=== PATIENT | male | born 1980 | race Caucasian/White ===

== ENCOUNTER 2017-05-23 08:26 | Emergency (ER) | payer OTHER ==
[2017-05-23] MEDS ORDERED: ALBUTEROL SULFATE/IPRATROPIUM 3 ML NEBU IH ONE ×2 (09:37→09:50)
[2017-05-23 09:38] LABS: Hematocrit 47.3 % (42.0-52.0); Hemoglobin 16.9 gm/dL (13.5-18.0); Mean Cell Volume 86.5 fl (78-100); Mean Corpuscular Hemoglobin 30.9 pg (27-31); Mean Corpuscular Hgb Conc 35.7 g/dl (32-36); Mean Platelet Volume 10.1 fl (6.0-9.5); Neutrophil % 59.3 % (42-75.0); Platelet Count 261 K/mm3 (150-450); Red Blood Count 5.47 M/mm3 (4.7-6.0); Red Cell Distribution Width 11.7 % (11.5-14.0); White Blood Count 6.8 K/mm3 (4.0-10.5)
[2017-05-23 09:57] LABS: ALT 56 U/L (19-67); AST 25 U/L (0-48); Albumin * 4.2 gm/dl (3.4-5.0); Alkaline Phosphatase * 85 U/L (50-170); Anion Gap 10.9 mmol/L (6.8-13.8); BUN/Creatinine Ratio 14.3 (9.0-21.6); Bilirubin, Total 0.4 mg/dL (0.0-1.1); Blood Urea Nitrogen 18 mg/dL (6-23); Ca. Corrected For Albumin 8.3 mg/dL (8.4-10.2); Calcium * 8.8 mg/dL (7.9-10.9); Carbon Dioxide 29.4 mmol/L (24-32.6); Chloride 103 mmol/L (97-106); Glucose * 100 mg/dL (70-110); Lipase 103 U/L (73-393); Potassium 4.3 mmol/L (3.4-4.6); Sodium 139 mmol/L (132-142); Total Protein 7.5 gm/dL (6.2-8.2)
[2017-05-23 09:59] LABS: Troponin I Less than 0.017 ng/ml (0.00-0.10)
[2017-05-23 10:18] VITALS: BP 139/84
--- NOTE | 2017-05-23 10:42 | ERNOTE ---
Time Seen by Provider: 05/23/17 09:17 Stated Complaint: PAIN WHEN BREATHING Source: patient Exam Limitations: no limitations Immunizations: IMMUNIZATION HX Immunizations Up to Date Yes History of Influenza Vaccine No Allergies/Adverse Reactions: Allergies acetaminophen [From Tylenol-Codeine #3] Allergy (Verified 05/23/17 08:47) codeine phosphate [From Tylenol-Codeine #3] Allergy (Verified 05/23/17 08:47) latex Allergy (Verified 05/23/17 08:47) levofloxacin [From Levaquin] Allergy (Verified 05/23/17 08:47) metoclopramide HCl [From Reglan] Allergy (Verified 05/23/17 08:47) morphine Allergy (Verified 05/23/17 08:47) oxycodone HCl [From Percocet] Allergy (Verified 05/23/17 08:47) promethazine HCl [From Phenergan] Allergy (Verified 05/23/17 08:47) sulfamethoxazole [From Bactrim] Allergy (Verified 05/23/17 08:47) trimethoprim [From Bactrim] Allergy (Verified 05/23/17 08:47) Home Medications: HOME MEDICATIONS Albuterol Sulfate [Proair Hfa] 2 puff IH QID PRN 04/18/16 [Last Taken Unknown] Budesonide/Formoterol Fumarate [Symbicort 160-4.5 Mcg Inhaler] 2 puff IH BID [Last Taken Unknown] Benzonatate [Tessalon Perle] 100 mg PO TID PRN #10 capsule 05/23/17 [Last Taken Unknown] - [facility]: patient presents with cough and right sided CP for several weeks. He had a pneumonia diagnosed just before and was treated with ABx. This was in [facility]. He has been having right sided CP ever since then, constant but also with deep breathing. It has gradually been improving for the last couple of weeks but because it was still present he came in to be evaluated. No SOB. Still with cough. No fever. Pain right anterior chest and some in RUQ. No vomiting. Pain is worse with touching his chest by his report. Overall he had been improving with these Sx but because it wan't entirely gone he wanted to be checked. no acute or new Sx today. No hemptysis , still with some sputum production. Timing: getting worse Severity: moderate Modifying Factors - Improves: Reports: nothing Modifying Factors - Worsens: Reports: other - touching chest Associated Symptoms: Reports: cough. Denies: shortness of breath, facial pain, sore throat Prior Treatment: Reports: recently seen, treated by physician Review of Systems - Review of Systems Constitutional: Absent: fever ENT: Absent: sore throat Respiratory: Present: See HPI Cardiology: Present: See HPI Gastrointestinal/Abdominal: Present: See HPI. Absent: nausea, vomiting Genitourinary: Present: no symptoms reported Musculoskeletal: Present: See HPI, other - no DVT Sx Skin: Absent: rash Neurological: Absent: weakness - Patient's Past Medical History Patient History - Medical: No pertinent hx Patient History - Cardiac/Respiratory: No pertinent hx Patient History - Cancer: No Hx of Cancer Patient History - Surgical Procedures: Vasectomy Patient History - Other: None - Social History Living Situations: home Psych History: No pertinent hx Smoking Status: Never smoker Alcohol Use: occasionally Drug Use: none - Immunizations Immunizations Up to Date: Yes History of Influenza Vaccine: No Physical Exam - Physical Exam General Appearance: Present: alert, no apparent distress, other - pleasant, sitting on the bed, speaking in full sentences, non-toxic, no distress. Head Exam: Present: normal inspection, no evidence of injury Eye Exam: Normal inspection: bilateral, PERRL: bilateral Ears, Nose, Throat: Present: normal ENT inspection. Absent: dry mucous membranes Neck: Present: normal inspection Respiratory: Present: no respiratory distress, normal breath sounds, no accessory muscle use, lungs clear, chest tenderness, other - Right CC anterior chest tendenress. Absent: accessory muscle use, crackles, rales, rhonchi, stridor, wheezing, pleural rub Cardiovascular/Chest: Present: regular rate, rhythm, normal peripheral pulses Gastrointestinal/Abdominal: Present: normal bowel sounds, nontender, nondistended, soft, no organomegaly Back Exam: Present: normal range of motion Extremity Exam: Present: normal inspection, no edema Neurological Exam: Present: alert, normal mood/affect, no motor/sensory deficits Skin Exam: Present: normal color, warm/dry ED Progress - Results and Orders Patient's Lab Results:: I have reviewed the patient's lab results. - Vital Signs Patient's Vital Signs:: I have reviewed the patient's vital signs. Vital Signs: Vital Signs 05/23/17 05/23/17 05/23/17 08:35 09:52 09:53 Temperature 36.2 C L Pulse Rate 72 75 81 Respiratory 15 16 16 Rate Blood Pressure 138/79 137/94 O2 Sat by Pulse 98 98 98 Oximetry 05/23/17 05/23/17 10:03 10:16 Temperature 36.3 C L Pulse Rate 74 74 Respiratory 16 15 Rate Blood Pressure 139/84 O2 Sat by Pulse 98 Oximetry - EKG EKG: NSR EKG read: Interp. by me EKG Comments: NSR rate 74. PVCs. Non-specific changes, no STEMI - X-Ray X-Ray #1 X-Ray: chest Interpretation: Interp. by me X-ray Comments: I reviewed official radiology report. NAPP. - Progress/Reassessment Chief Complaint: Upper Respiratory Symptoms Progress Note-Subjective: 05/23/17 10:36 At this time right sided CP is reproducible with palpation, recent pneumonia, improving without apparent complication. No wheezing on exam, duoneb give but no new wheezing heard. Nothing to suggest PE or aortic dissection, nothing to suggest ACS, pericarditis or pericardial effusion. No acute life threat found. He wants to go home. Will give tessalon perles for cough. Appt with PCP made for May 30. I discussed warning signs and reasons to return as well as the need for close f/u. Departure Clinical Impression: Cough, Atypical chest pain - Departure Disposition: Home self-care Condition: Stable Instructions: Cough, Adult, [id number] Additional Instructions: Rest. Fluids. Follow-up with your primary doctor May 30 at 11:15. Return here for trouble breathing, fever or if your condition worsens or changes in any way. Referrals: Deya Trinh FNP [Primary Care Provider] - Prescriptions: Benzonatate [Tessalon Perle] 100 mg PO TID PRN #10 capsule PRN Reason: Cough
== END 2017-05-23 10:48 | disposition home or self-care (01) ==
LOC: ER 08:26
DX: R07.89 Other chest pain (principal); R05 Cough